=== PATIENT | male | born 1950 | race Caucasian/White ===

== ENCOUNTER 2017-02-26 13:25 | Emergency (ER) | payer OTHER ==
[~2017-02-26] VITALS: Ht 175.3 cm; Wt 76.0 kg
[2017-02-26 13:29] VITALS: Ht 175.3 cm; Wt 76.0 kg
[2017-02-26] MEDS ORDERED: AMO500 PO (13:51)
[2017-02-26] MEDS ORDERED: IBUP-1542 PO (13:51)
--- NOTE | 2017-02-26 13:52 | ERD ---
ER Documentation Chief Complaint Date/Time DATE: 02/26/17 TIME: 13:51 Chief Complaint SORE THROAT X4DAYS HPI 66-year-old male complains of sore throat for last 4 days. He has pain with swallowing and pain in the anterior cervical area of the neck. Denies any fevers, cough, chest pain. ROS All systems reviewed and are negative except as per history of present illness. Medications Home Meds Active Scripts Ibuprofen* (Motrin*) 600 Mg Tab, 600 MG PO Q6, #20 TAB Prov:JULIAN RAMIREZ MD 02/26/17 Amoxicillin* (Amoxicillin*) 500 Mg Cap, 500 MG PO TID for 10 Days, CAP Prov:JULIAN RAMIREZ MD 02/26/17 Physical Exam Vitals Vital Signs Date Time Temp Pulse Resp B/P Pulse Ox O2 Delivery O2 Flow Rate FiO2 02/26/17 13:29 97.6 56 20 152/80 99 Physical Exam Const: [] Alert, not ill-appearing Head: Atraumatic Eyes: Normal Conjunctiva ENT: Normal External Ears, Nose and Mouth. TMs normal. Oropharynx shows erythema. Tonsils 2+. Uvula midline. Some tenderness in the anterior cervical area with possibly some shotty lymphadenitis. Neck: Full range of motion..~ No meningismus. Resp: Clear to auscultation bilaterally Cardio: Regular rate and rhythm, no murmurs Abd: Soft, non tender, non distended. Normal bowel sounds Skin: No petechiae or rashes Back: No midline or flank tenderness Ext: No cyanosis, or edema Neur: Awake and alert Psych: Normal Mood and Affect Procedures/MDM Throat pain and signs of pharyngitis. Suspicion is low for cardiac chest pain radiating to the throat, abscess, additional emergent causes of the sore throat. We will treat with amoxicillin ibuprofen and observation at home. The patient was stable with no new complaints during the ER course. Clinically, there is no current evidence to suggest meningitis, sepsis, acute abdomen, pneumonia, acute coronary syndrome, pulmonary embolism, or any other emergent condition appearing to require further evaluation or hospitalization. The patient should certainly return for any new or worsening symptoms per the aftercare instructions. They should otherwise follow-up with her primary care doctor for reevaluation this week. Departure Diagnosis: Primary Impression: Sore throat Condition: Stable Patient Instructions: When You Have a Sore Throat, Pharyngitis, Strep (Presumed ) Additional Instructions: Cheque otro vez con heart doctor primario en el proximo bean or regresa para mas o nueva simptomas. JULIAN RAMIREZ MD Feb 26, 2017 13:52
== END 2017-02-26 14:10 | disposition home or self-care (01) ==
LOC: FTE 13:25
DX: J02.9 Acute pharyngitis, unspecified (principal)
CPT/HCPCS: 99283